=== PATIENT | female | born 1940 | race African-American/Black ===

== ENCOUNTER 2016-12-28 13:09 | Outpatient (CLI) | payer MEDICARE, OTHER ==
[~2016-12-28] VITALS: Ht 154.9 cm; Wt 74.6 kg
[~2016-12-28 13:09] MED LIST: AMARYL 2MG T2 MG/TAB PO; AMARYL2 MG PO; AMARYL4 MG PO; APRESOLINE 25MG25 MG PO; ASPIRIN 81M81 MG/TA2 PO; BENADRYL25 M2 PO; BONIVA150 MG PO; CALCIUM + D 6001 TA1 PO; COLACE 100100 MG/CAP PO; EFFEXOR-XR150 MG PO; EPA FISH OIL1000 MG PO; ESTROGENS0.3 MG PO; EYE ITCH RELIEF5 ML OP; FLONASE0.05 MG/AC NS; GABAPENTIN300 MG PO; GEMCOR600 MG PO; HYGROTON25 MG PO; LOPID 600M600 MG/TAB PO; MELOXICAM15 MG PO; MICARDIS HCT 251 TAB PO; MICARDIS80 MG PO; MIRALAX119G PO; NAPROSYN500 MG PO; NEURONTIN300 MG/CAP PO; NEXIUM 40MG40 MG PEG; NEXIUM 40MG40 MG PO; NORCO 325 MG-51 TAB PO; NORVASC 10MG10 MG PO; NORVASC5 MG PO; OYSTER CALCIUM500 M1 PO; REGLAN 10MG10 MG/TAB PO; REQUIP 1MG T1 MG/TAB PO; SENOKOT8.6 MG PO; TOPROL XL 25MG25 MG PO; ULTRAM 50MG TAB50 MG PO; VENTOLIN0.09 MG IH; XANAX 0.5MG0.5 MG PO; ZANTAC 150150 MG PO; ZYRTEC 10MG10 MG PO
[2016-12-28 14:18] VITALS: BP 140/48; PULSE 82; TEMP 98.7
[2016-12-28] MEDS ORDERED: NEURONTIN300 MG/CAP PO (16:34)
[2016-12-28] MEDS ORDERED: PRILOSEC 20MG20 MG PO (16:35)
[2016-12-28] MEDS ORDERED: LEXAPRO 10MG10 MG PO (16:36)
== END 2016-12-28 16:40 | disposition home or self-care (01) ==
LOC: EUO 13:09
DX: N18.3 Chronic kidney disease, stage 3 (moderate) (principal); D63.1 Anemia in chronic kidney disease; I15.9 Secondary hypertension, unspecified; E11.9 Type 2 diabetes mellitus without complications; Z91.81 History of falling
CPT/HCPCS: J0881

== ENCOUNTER 2018-10-16 15:32 | Emergency (ER) | payer MEDICARE, OTHER ==
[~2018-10-16] VITALS: Ht 154.9 cm; Wt 75.0 kg
[~2018-10-16 15:32] MED LIST changes: +AMBIEN 5MG TABLE5 MG PO; +CELEXA 20MG20 MG/TAB PO; +CLARITIN 1010 MG/TAB PO; +FISH OIL1000 MG PO; +LEXAPRO 10MG10 MG PO; +LEXAPRO20 MG PO; +PRILOSEC 20MG20 MG PO; +PRILOTC PO; +RESTORIL 1515 MG/CAP PO; +TESSALON PERLE200 MG PO; +TYLENOL 325MG325 MG PO; +TYLENOL W/COD1 UDTAB PO; +ZITHROMAX500 M2 PO
[2018-10-16 15:35] VITALS: TEMP 99.3
[2018-10-16 16:11] LABS: BASO % 0.5 % (0.0-2.0); EOS # 0.1 (0.0-0.7); EOS % 1.3 % (0-4.0); GRAN # 5.4 (1.4-6.5); GRAN % 60.9 % (42.2-75.2); LYMPH # 2.8 (1.2-3.4); LYMPH % 31.5 % (20.0-51.0); MEAN CELL VOLUME 63 fl (80.0-100.0); MEAN CORPUSCULAR HGB CONC 35 g/dl (33.0-37.0); MEAN PLATELET VOLUME 9.3 fl (7.4-10.4); MONO # 0.5 (0.1-0.6); MONO % 5.3 % (1.7-9.3); PLATELET COUNT 202 K/mm3 (130-400); REDCELL DISTRIBUTION WIDTH-CV 16.8 % (11.5-14.5)
[2018-10-16 16:12] LABS: HEMATOCRIT 27.7 % (37.0-47.0); HEMOGLOBIN 9.7 g/dl (12.5-16.0); MEAN CORPUSCULAR HEMOGLOBIN 22 pg (27.0-31.0)
[2018-10-16 16:32] LABS: ALBUMIN 4.2 gm/dL (3.5-5.0); BILIRUBIN,TOTAL 0.9 mg/dL (0.0-1.0); CALCIUM 9.1 mg/dL (8.4-10.2); CREATININE, serum 1.73 (0.52-1.25); POTASSIUM 3.5 mmol/L (3.4-5.0); TOTAL PROTEIN 7.8 gm/dL (6.4-8.2)
[2018-10-16 16:34] LABS: COLLECTION METHOD CATHETER
[2018-10-16 16:42] LABS: PH 6 (5-8); SQUAMOUS EPITHELIAL None Seen /hpf; URINE APPEARANCE Clear; URINE BACTERIA None Seen /hpf; URINE BILIRUBIN Negative (NEGATIVE); URINE BLOOD Negative (NEGATIVE); URINE COLOR Straw; URINE GLUCOSE Negative (NEGATIVE); URINE KETONE Negative (NEGATIVE); URINE LEUKOCYTE ESTERASE Negative (NEGATIVE); URINE NITRATE Negative (NEGATIVE); URINE PROTEIN(semi-quant) Negative (NEGATIVE); URINE RBC 0-2 /hpf; URINE UROBILINOGEN Negative (NEGATIVE)
[2018-10-16] MEDS ORDERED: ZOFRAN 4MG T4 MG/TAB PO (18:39)
[2018-10-16 19:02] VITALS: BP 134/67; PULSE 85
== END 2018-10-16 18:56 | disposition home or self-care (01) ==
LOC: COL.ER 15:32
PROVIDERS: Emergency Medicine
DX: R10.9 Unspecified abdominal pain (principal); Z79.82 Long term (current) use of aspirin
CPT/HCPCS: J2405; J2930; J3010; J7030

== ENCOUNTER 2023-12-20 11:07 | Emergency (ER) | payer MEDICARE, MEDICAID ==
[~2023-12-20] VITALS: Ht 154.9 cm; Wt 77.3 kg
[~2023-12-20 11:07] MED LIST changes: +ZOFRAN 4MG T4 MG/TAB PO
[2023-12-20 11:13] VITALS: TEMP 98.4
[2023-12-20] MEDS ORDERED: Acetaminophen 325 MG TAB PO ONE (13:00)
[2023-12-20 13:02] VITALS: BP 164/78; PULSE 86
--- NOTE | 2023-12-20 13:28 | NUR ---
bed worker was consulted to determine transportation for patient to return to [facility]. [facility] was notified patient was transferred from [place]. [facility] contacted [facility] and confirmed patient resides there. [facility] would like a report from the ER, geriatric social work professor provided report number to the ER nurse. [facility] was on their way to [facility] patient, [facility] notified patient's nurse.
== END 2023-12-20 13:17 | disposition home or self-care (01) ==
LOC: COL.ER 11:07
DX: S09.90XA Unspecified injury of head, initial encounter (principal); S00.03XA Contusion of scalp, initial encounter; W19.XXXA Unspecified fall, initial encounter; W22.8XXA Striking against or struck by other objects, initial encounter; Y92.121 Bathroom in nursing home as the place of occurrence of the external cause